=== PATIENT | female | born 1965 | race Caucasian/White ===

== ENCOUNTER → 2017-12-27 | Outpatient (CLI) | payer OTHER | LOC: COL.LAB 10:18 | DX: R06.03 Acute respiratory distress (principal) ==

== ENCOUNTER → 2018-07-18 | Outpatient (CLI) | payer OTHER | LOC: COL.RAD 11:15 | DX: M47.817 Spondylosis without myelopathy or radiculopathy, lumbosacral region (principal) ==

== ENCOUNTER → 2018-08-18 | Outpatient (CLI) | payer OTHER ==
[~2018-08-18] VITALS: Ht 162.6 cm; Wt 117.0 kg
[~2018-08-18] MED LIST: INDOCIN SR 75MG75 MG PO
[2018-08-18 09:43] VITALS: BP 113/85; PULSE 84
[2018-08-18 10:30] VITALS: BP 126/88; PULSE 79
== END ==
LOC: COL.RAD 09:10
DX: M47.27 Other spondylosis with radiculopathy, lumbosacral region (principal)
CPT/HCPCS: J3301

== ENCOUNTER → 2018-10-07 | Outpatient (CLI) | payer OTHER | LOC: MC.RAD 09:31 | DX: Z12.31 Encounter for screening mammogram for malignant neoplasm of breast (principal) ==

== ENCOUNTER → 2019-01-04 | Outpatient (CLI) | payer OTHER ==
[~2019-01-04] VITALS: Ht 160 cm; Wt 124.5 kg
[2019-01-04 06:46] VITALS: BP 143/85; PULSE 89
[2019-01-04 07:45] VITALS: BP 131/89; PULSE 78
--- NOTE | 2019-01-04 08:24 | NUR ---
pt out to car per wheelchair. Pain unchanged. Pt up and into car without assistance.
== END ==
LOC: COL.RAD 06:30
DX: M47.26 Other spondylosis with radiculopathy, lumbar region (principal)
CPT/HCPCS: J3301

== ENCOUNTER 2019-06-29 09:51 | Emergency (ER) | payer OTHER ==
[~2019-06-29] VITALS: Ht 160 cm; Wt 118.2 kg
[2019-06-29 09:56] VITALS: BP 137/101; TEMP 98.7
[2019-06-29] MEDS ORDERED: ULTRAM 50MG TAB50 MG PO (10:13)
[2019-06-29] MEDS ORDERED: NORCO 325 MG-51 TAB PO (11:06)
[2019-06-29] MEDS ORDERED: CRUTCHES MC (11:06)
[2019-06-29 11:20] VITALS: PULSE 78
== END 2019-06-29 11:21 | disposition home or self-care (01) ==
LOC: COL.ER 09:51
DX: S80.01XA Contusion of right knee, initial encounter (principal); W00.0XXA Fall on same level due to ice and snow, initial encounter; Y92.410 Unspecified street and highway as the place of occurrence of the external cause

== ENCOUNTER → 2020-08-29 | Outpatient (CLI) | payer OTHER ==
[~2020-08-29] MED LIST changes: +CRUTCHES MC; +NORCO 325 MG-51 TAB PO; +ULTRAM 50MG TAB50 MG PO
== END ==
LOC: MC.RAD 09:42
DX: Z12.31 Encounter for screening mammogram for malignant neoplasm of breast (principal)

== ENCOUNTER → 2020-11-05 | Outpatient (CLI) | payer OTHER | LOC: COL.PUL | DX: J45.20 Mild intermittent asthma, uncomplicated (principal) ==

== ENCOUNTER → 2020-12-19 | Outpatient (CLI) | payer OTHER | LOC: COL.VAS 08:30 | DX: M79.661 Pain in right lower leg (principal) ==

== ENCOUNTER → 2022-03-24 | Outpatient (CLI) | payer OTHER | LOC: MC.RAD 02-25 09:15 | DX: Z12.31 Encounter for screening mammogram for malignant neoplasm of breast (principal) ==

== ENCOUNTER → 2024-01-13 | Outpatient (CLI) | payer BC | LOC: COL.RAD 10:00 | DX: M79.661 Pain in right lower leg (principal) ==